=== PATIENT | male | born 1970 | race American Indian/Alaskan Native ===

== ENCOUNTER 2018-07-21 18:42 | Emergency (ER) | payer OTHER ==
[2018-07-21] MEDS ORDERED: ASPIRIN PO ONE (19:06)
[2018-07-21 19:43] LABS: Basophils # (Auto) 0.1 K/mm3 (0.0-0.1); Basophils % (Auto) 1.3 % (0.0-1.8); Eosinophils # (Auto) 0.3 K/mm3 (0.0-0.4); Hematocrit 43.9 % (35.5-45.6); Hemoglobin 15.3 gm/dl (11.8-15.2); Lymphocytes % (Auto) 50.1 % (13.4-35.0); Mean Corpuscular HGB Conc 35 % (32-34); Mean Corpuscular Hemoglobin 32 pg (28-32); Mean Corpuscular Volume 91 fl (84-94); Monocytes # (Auto) 0.4 K/mm3 (0.0-0.8); Monocytes % (Auto) 6.8 % (0.0-7.3); Platelet Count 203 K/mm3 (140-440); Red Blood Count 4.82 M/mm3 (3.65-5.03); Red Cell Distribution Width 13.6 % (13.2-15.2)
[2018-07-21 20:39] LABS: BUN/Creatinine Ratio 9; Blood Urea Nitrogen 11 mg/dL (9-20); Calcium 8.9 mg/dL (8.4-10.2); Hemolysis Index 60
--- NOTE | 2018-07-21 21:03 | Emergency Department Report ---
ED Headache HPI - General Chief Complaint: Headache Stated Complaint: HEADACHE/CHEST PAIN DUE TO REACTION Time Seen by Provider: 07/21/18 20:42 Source: patient - History of Present Illness Initial Comments: Patient said that 2 days ago he drank a Redbull and afterwards he started having allergic reaction. He said his throat started to close up and he went to an Urgent Care care where they give him a steroid shot and also told him to go to the emergency room for evaluation for his headache. Patient is a diabetic and has high cholesterol. He has family history of coronary artery disease. His Uncle of heart attack when he was in his 40s. Patient states he is having tightness in the chest and severe headache. He denies shortness of breath, abdominal pain, nausea or vomiting. Patient said he is here because he wants to check why he is having headaches. Last stress test was 3 years ago after his doctor noticed that he had an abnormal EKG. 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 Timing/Duration: constant Quality: moderate Head Injury Location: global Recent Head Trauma: occasional headaches Associated Symptoms: denies symptoms Allergies/Adverse Reactions: Allergies Penicillins Allergy (Verified 07/21/18 19:05) Unknown ED Review of Systems ROS: Stated complaint: HEADACHE/CHEST PAIN DUE TO REACTION Other details as noted in HPI Comment: All other systems reviewed and negative Constitutional: denies: chills, fever Eyes: denies: eye pain ENT: denies: ear pain, throat pain Respiratory: denies: cough, orthopnea, shortness of breath Cardiovascular: chest pain. denies: palpitations, dyspnea on exertion Endocrine: no symptoms reported Gastrointestinal: denies: abdominal pain, nausea, vomiting, diarrhea Genitourinary: denies: urgency, dysuria Musculoskeletal: denies: back pain, joint swelling Skin: denies: rash, lesions Neurological: denies: headache, weakness, numbness Psychiatric: denies: anxiety, depression Hematological/Lymphatic: denies: easy bleeding, easy bruising ED Past Medical Hx - Past Medical History Hx Diabetes: Yes - Surgical History Past Surgical History?: No - Social History Smoking Status: Never Smoker Substance Use Type: None ED Physical Exam - General Limitations: No Limitations General appearance: alert, in no apparent distress - Head Head exam: Present: atraumatic, normocephalic, normal inspection - Eye Eye exam: Present: normal appearance, PERRL, EOMI Pupils: Present: normal accommodation - ENT ENT exam: Present: normal exam, normal orophraynx, mucous membranes moist - Neck Neck exam: Present: normal inspection, full ROM. Absent: tenderness, meningismus - Respiratory Respiratory exam: Present: normal lung sounds bilaterally. Absent: respiratory distress, wheezes, rales, rhonchi, stridor - Cardiovascular Cardiovascular Exam: Present: regular rate, normal rhythm, normal heart sounds - GI/Abdominal GI/Abdominal exam: Present: soft, normal bowel sounds. Absent: distended, tenderness, guarding, rebound, rigid - Extremities Exam Extremities exam: Present: normal inspection, full ROM, normal capillary refill. Absent: tenderness - Back Exam Back exam: Present: normal inspection, full ROM. Absent: tenderness - Neurological Exam Neurological exam: Present: alert, oriented X3, CN II-XII intact - Psychiatric Psychiatric exam: Present: normal affect, normal mood - Skin Skin exam: Present: warm, dry, intact, normal color. Absent: rash ED Course Vital Signs 07/21/18 07/21/18 07/21/18 18:59 22:19 22:30 Temperature 98.4 F Pulse Rate 89 70 Respiratory 16 12 22 Rate Blood Pressure 138/89 Blood Pressure [Left] O2 Sat by Pulse 96 98 95 Oximetry 07/21/18 07/21/18 07/21/18 22:46 23:00 23:16 Temperature Pulse Rate 67 88 70 Respiratory 25 H 29 H 18 Rate Blood Pressure Blood Pressure [Left] O2 Sat by Pulse 96 96 96 Oximetry 07/21/18 07/21/18 07/22/18 23:30 23:46 00:46 Temperature Pulse Rate 86 72 82 Respiratory 15 13 17 Rate Blood Pressure Blood Pressure 133/77 [Left] O2 Sat by Pulse 98 95 99 Oximetry - Reevaluation(s) Reevaluation #1: 07/22/18 01:22 Patient refused admission and he signed and left AMA. ED Medical Decision Making - Lab Data Result diagrams: 07/21/18 19:26 07/21/18 19:26 - EKG Data -: EKG Interpreted by Me EKG shows normal: sinus rhythm Rate: normal (78) - EKG Data When compared to previous EKG there are: previous EKG unavailable Interpretation: nonspecific ST-T wave bernabe 07/21/18 21:03 RBBB, No STEMI. - Radiology Data Radiology results: report reviewed, image reviewed CT head and CXR is unremarkable. - Medical Decision Making Patient refused to be admitted for abnormal EKG and stress test in the morning. He signed and left against medical advice. Critical care attestation.: If time is entered above; I have spent that time in minutes in the direct care of this critically ill patient, excluding procedure time. ED Disposition Clinical Impression: Abnormal EKG, Chest pain, atypical Headache Qualifiers: Headache type: unspecified Headache chronicity pattern: unspecified pattern Intractability: not intractable Qualified Code(s): R51 - Headache Disposition: DC-07 LEFT AGAINST MED ADVICE Is pt being admited?: No Does the pt Need Aspirin: No Condition: Stable Instructions: Chest Pain (ED) Referrals: PRIMARY CARE, [Primary Care Provider] - 3-5 Days Time of Disposition: 23:59
[2018-07-21] MEDS ORDERED: DELTASONE PO ONE (21:04)
[2018-07-21 21:28] LABS: INR 0.9 (0.87-1.13)
[2018-07-21 21:29] LABS: Partial Thromboplastin Time 22.9 Sec. (24.2-36.6)
[2018-07-21] MEDS ORDERED: BABY ASPIRIN ONE (21:46)
[2018-07-21 22:14] LABS: Albumin 3.8 g/dL (3.9-5)
[2018-07-21 22:15] LABS: Bilirubin,Direct < 0.2 mg/dL (0-0.2)
--- NOTE | 2018-07-21 22:30 | Cat Scan Report ---
FINAL REPORT PROCEDURE: CT head without contrast. TECHNIQUE: Computerized tomography of the head was performed without contrast material. HISTORY: Headache. COMPARISON: No prior studies are available for comparison. FINDINGS: The ventricles are normal in size. The santillan matter and white matter appear normal. There are no mass lesions. There is no intracranial hemorrhage. The calvarium appears intact. The mastoid air cells and paranasal sinuses are clear as far as visualized. IMPRESSION: Normal study.
[2018-07-21 22:31] LABS: Alanine Aminotransferase < 5 units/L (7-56)
--- NOTE | 2018-07-21 22:33 | XRay Report ---
FINAL REPORT PROCEDURE: Chest. TECHNIQUE: Portable AP view. HISTORY: Chest pain. COMPARISON: No prior studies are available for comparison. FINDINGS: The heart and mediastinum appear normal. The lungs are clear and well expanded. There are no pleural effusions. The soft tissues and regional skeleton are unremarkable. IMPRESSION: Negative portable chest.
[2018-07-21 23:05] LABS: Bilirubin,Urine NEG (Negative); Blood,Urine NEG (Negative); Color,Urine Yellow (Yellow); Mucus,Urine FEW /HPF; Protein,Urine <15 mg/dL mg/dL (Negative); RBC,Urine < 1.0 /HPF (0.0-6.0); Urobilinogen,Urine < 2.0 mg/dL (<2.0)
[2018-07-21 23:13] LABS: Amphetamine Screen,Urine PRESUMPTIVE NEGATIVE; Benzodiazepines Screen,Urine PRESUMPTIVE NEGATIVE; Cannabinoid Screen,Urine PRESUMPTIVE NEGATIVE; Cocaine Screen,Urine PRESUMPTIVE NEGATIVE; Methadone Screen,Urine PRESUMPTIVE NEGATIVE; Opiate Screen,Urine PRESUMPTIVE NEGATIVE
[2018-07-22 00:47] VITALS: BP 133/77
== END 2018-07-22 00:46 | disposition left against medical advice (07) ==
LOC: ED 18:42
DX: R51 Headache (principal); R07.89 Other chest pain; E11.9 Type 2 diabetes mellitus without complications; E78.00 Pure hypercholesterolemia, unspecified; Z88.0 Allergy status to penicillin
CPT/HCPCS: 36415; 70450; 71045; 80048; 80074; 80307; 81001; 84484; 85025; 85610; 85730; 93005; 93010; 99285; J7512